=== PATIENT | male | born 1980 | race African-American/Black ===

== ENCOUNTER 2024-12-06 16:00 | Emergency (ER) | payer MEDICAID ==
[~2024-12-06] VITALS: Ht 167.6 cm; Wt 55.9 kg
[2024-12-06] MEDS ORDERED: DOXY-460 PO (16:47)
[2024-12-06 16:50] VITALS: BP 122/68; PULSE 78; RESP 16; TEMP 98.9; O2SAT 98
== END 2024-12-06 16:56 | disposition home or self-care (01) ==
LOC: ER 16:01
DX: L02.415 Cutaneous abscess of right lower limb (principal)
CPT/HCPCS: 99283; A6258; A6449

== ENCOUNTER 2024-12-12 10:17 | Emergency (ER) | payer MEDICAID ==
[~2024-12-12] VITALS: Ht 167.6 cm; Wt 57.4 kg
[~2024-12-12 10:17] MED LIST: DOXY-460 PO
[2024-12-12 10:26] VITALS: BP 134/92; PULSE 86; RESP 16; O2SAT 99
[2024-12-12] MEDS ORDERED: CLIN300C71 PO (10:53)
[2024-12-12 10:58] VITALS: TEMP 98.4
== END 2024-12-12 11:01 | disposition home or self-care (01) ==
LOC: ER 10:18
DX: K08.89 Other specified disorders of teeth and supporting structures (principal)
CPT/HCPCS: 99283